=== PATIENT | female | born 1995 | race Two or more races ===

== ENCOUNTER 2021-07-01 13:14 | Emergency (ER) | payer BC ==
[~2021-07-01] VITALS: Ht 160 cm; Wt 50.0 kg
[2021-07-01 13:17] VITALS: BP 128/97
[2021-07-01] MEDS ORDERED: ONDANSETRON 4MG ODT PO ONE (14:00)
[2021-07-01 14:25] LABS: BASOPHILS % 0.3 % (0.0-2.0); HEMATOCRIT. 36.7 % (36.0-48.0); HEMOGLOBIN. 12.2 g/dL (12.0-16.0); LYMPHOCYTES % 30.2 % (20.0-50.0); MEAN CORPUSCULAR HEMOGLOBIN 31.3 pg (28.0-32.0); MEAN CORPUSCULAR VOLUME 94.1 fL (81.0-99.0); MEAN PLATELET VOLUME 8.1 fl (7.4-10.4); MONOCYTES % 9.5 % (2.0-8.0); PLATELET 231 x1000/uL (130-400); RED CELL DISTRIBUTION WIDTH 12.8 % (11.6-14.6)
[2021-07-01 14:30] LABS: CHLORIDE 111 mEq/L (98-107)
[2021-07-01 14:52] LABS: HCG SCREEN NEGATIVE
[2021-07-01] MEDS ORDERED: ONDA4TAB11 PO (15:52)
[2021-07-01] MEDS ORDERED: IBUP-2028 MT (15:52)
[2021-07-01] MEDS: ONDANSETRON 4MG ODT PO NR ×3 (16:13→16:15)
== END 2021-07-01 16:16 | disposition home or self-care (01) ==
LOC: ER 13:14
DX: B34.9 Viral infection, unspecified (principal); R03.0 Elevated blood-pressure reading, without diagnosis of hypertension
CPT/HCPCS: 36415; 71045; 80053; 83690; 84703; 85025; 99284; Q0162

== ENCOUNTER 2021-07-03 14:19 | Emergency (ER) | payer BC ==
[~2021-07-03] VITALS: Ht 160 cm; Wt 48.0 kg
[~2021-07-03 14:19] MED LIST: IBUP-2028 MT; ONDA4TAB11 PO
[2021-07-03 18:07] LABS: CLARITY URINE CLEAR (CLEAR); COLOR URINE DARK YELLOW (YELLOW); KETONES URINE 2+ (NEGATIVE); LEUKOCYTE ESTERASE URINE NEGATIVE (NEGATIVE); NITRITE URINE NEGATIVE (NEGATIVE); OCCULT BLOOD URINE NEGATIVE (NEGATIVE); PH URINE 5.5 (4.5-8.0); PROTEIN URINE TRACE (NEGATIVE); SPECIFIC GRAVITY URINE 1.037 (1.005-1.030)
[2021-07-03 18:55] VITALS: BP 111/83
== END 2021-07-03 18:55 | disposition home or self-care (01) ==
LOC: ER 15:21
DX: J06.9 Acute upper respiratory infection, unspecified (principal); J45.909 Unspecified asthma, uncomplicated
CPT/HCPCS: 81003; 81025; 87804; 99283